=== PATIENT | male | born 1975 | race Caucasian/White ===

== ENCOUNTER 2020-06-25 23:46 | Inpatient (IN) | payer OTHER, MEDICAID ==
[~2020-06-25] VITALS: Ht 180.3 cm; Wt 77.1 kg
[2020-06-25 23:53] VITALS: BP 128/86
[2020-06-26] VITALS (7 sets, daily range): BP systolic 109–134; BP diastolic 62–95
[2020-06-26 00:52] LABS: ABSOLUTE NEUTROPHILS 5.3 thou/uL (1.4-8.2); BASOPHILS 0.5 % (0.0-2.0); EOSINOPHILS 0.1 % (0.0-3.0); HEMATOCRIT 42.6 % (42.0-52.0); HEMOGLOBIN 14.8 gm/dL (14.0-18.0); LYMPHOCYTES 25.6 % (24.0-44.0); MCH 32.3 pg (26.0-34.0); MCHC 34.7 g/dL (28.0-37.0); MONOCYTES 8.9 % (1.0-8.0); PLATELET COUNT 261 thou/uL (150-400); POLYS 64.9 % (36.0-66.0); RBC 4.58 mil/uL (4.50-6.00); RDW 12.8 % (10.5-14.5); WBC 8.2 thou/uL (4.0-11.0)
[2020-06-26 00:57] LABS: CREATININE 0.9 mg/dL (0.7-1.3); POTASSIUM 4.1 mmol/L (3.5-5.1)
[2020-06-26 01:04] LABS: ALBUMIN 3.3 g/dL (3.4-5.0); DIRECT BILIRUBIN 0.1 mg/dL (<0.1-0.2); TOTAL BILIRUBIN 0.4 mg/dL (0.2-1.0); TOTAL PROTEIN 6.8 g/dL (6.4-8.2)
[2020-06-26] MEDS ORDERED: INDERAL60 MG PO (02:48)
[2020-06-26] MEDS ORDERED: CARVEDILOL6.25 M1 PO (02:49)
[2020-06-26] MEDS ORDERED: ENTRESTO 49 MG1 EACH PO (02:49)
[2020-06-26] MEDS ORDERED: CHLORDIAZEPOXID25 M1 PO (04:50)
--- NOTE | 2020-06-26 06:26 | NUR ---
DISCUSSED DC HOME TODAY WITH PATIENT AFTER DR GARCIA HAD SPOKE TO HIM. VERY NERVOUS, VISIBLE TREMORS, NAUSEA WHEN HE LAYS IN CERTAIN POSITIONS. HAS TAKEN LIBRIUM IN THE PAST, PRESCRIPTION ON CHART FOR HOME USE. DR GARCIA GAVE ORDER FOR X 1 DOSE. I CALLED HIS FRIEND JUNITO WHO WAS UPDATED ON DC PLAN BY PHONE WITH HIS CONSENT.
--- NOTE | 2020-06-26 06:54 | NUR ---
SLEEPING BUT CONTINUES TO HAVE VISIBLE TREMORS. PULSE 105, V PACED RHYTHM. CHARGE NURSES EVAN AND COLE AWARE OF HIS TRANSPORTATION WILL BE DELAYED ARRIVING TO HOSPITAL AND CONTINUED TREMORS DURING HIS STAY.
[2020-06-26] MEDS ORDERED: TRAZODONE HCL100 MG PO (10:29)
[2020-06-26] MEDS ORDERED: DULOXETINE HCL30 MG PO (10:31)
[2020-06-26 13:19] LABS: FOLIC ACID > 100.0 ng/mL (8.6-58.9)
--- NOTE | 2020-06-26 18:18 | NUR ---
PT. ARRIVED AT THE FLOOR AROUND 1030; PT. AOX4; C/O HEADACHE; TREMORS NOTICED WHEN AMBULATING FROM STRETCHER TO BED; C/O NAUSEA, ANXIETY; SOME PIN AND NEEDLES; PRN IV MEDICATION GIVEN; IV FLUIDS STARTED; EDUCATED ABOUT FALL PRECAUTIONS; ST. UNDERSTANDING; CIWA PERFORMED THROUGH THE DAY; CHECK CHARTING; ABLE TO HAVE LUNCH; TOLERATED WELL; MONITORING; ASSESSMENT CHARGED; FOLLOWING POC; WILL PASS ON REPORT;
[2020-06-27 05:06] LABS: ABSOLUTE NEUTROPHILS 2.8 thou/uL (1.4-8.2); BASOPHILS 0.8 % (0.0-2.0); EOSINOPHILS 1.8 % (0.0-3.0); HEMATOCRIT 37.2 % (42.0-52.0); LYMPHOCYTES 33.8 % (24.0-44.0); MCH 31.5 pg (26.0-34.0); MCHC 33.5 g/dL (28.0-37.0); MCV 93.8 fL (80.0-100.0); MONOCYTES 7.3 % (1.0-8.0); POLYS 56.3 % (36.0-66.0); RBC 3.97 mil/uL (4.50-6.00); RDW 12.7 % (10.5-14.5)
[2020-06-27 05:21] LABS: HEMOGLOBIN 12.5 gm/dL (14.0-18.0); PLATELET COUNT 170 thou/uL (150-400)
[2020-06-27 05:36] LABS: CALCIUM 8.2 mg/dL (8.5-10.1); CREATININE 0.7 mg/dL (0.7-1.3); MAGNESIUM 1.8 mg/dL (1.8-2.4); POTASSIUM 3.7 mmol/L (3.5-5.1)
[2020-06-27 05:38] VITALS: BP 125/79
--- NOTE | 2020-06-27 07:24 | NUR ---
CIWA SCORE IN THE 8'S.ATIVAN PO GIVEN X 3 THIS SHIFT.ATE FEW BITES AT DINNER. MONITOR SHOWS AV PACED.POC CONTINUED.
[2020-06-27 08:00] VITALS: BP 118/73
--- NOTE | 2020-06-27 09:25 | EKG ---
[place] [id number] [employer] [place] [address] ELECTROCARDIOGRAM REPORT Name: GINO WOLFF Room #: 217- ADM IN M.R.#: [id number] Admission: 06/26/20 Attend Phys: Alberto Reyes MD Discharge: Date of : 71 Report #: [id number] [facility] ED Test Date: 2020-06-26 Test Time: 00:06:53 Pat Name: GINO WOLFF Department: Room: 217 Gender: M Records Specialist: remberto crespo : 1975 Requested By: Mily Gipson Order Number: [id number] MD: Mitch Mendes Measurements Intervals Bard Rate: 120 P: 0 TN: 106 QRS: 86 QRSD: 138 T: 210 QT: 347 QTc: 491 Interpretive Statements Ventricular-paced rhythm No further analysis attempted due to paced rhythm Baseline wander in lead(s) V2 No previous ECG available for comparison Electronically Signed On 06-27-2020 9:25:07 CDT by Mitch Mendes [email or web address] <ELECTRONICALLY SIGNED> By: Mitch Mendes MD, [facility] 06/27/20924 Mitch Mendes MD, [facility] /EPI
[2020-06-27 12:45] VITALS: BP 134/83
[2020-06-27 16:00] VITALS: BP 134/83
[2020-06-27 19:45] VITALS: BP 150/85
--- NOTE | 2020-06-27 20:31 | NUR ---
RECEIVED PT'S CARE AROUND 714; PT. ON BED; RESTING WITH EYES CLOSED; SR ON THE MONITOR; EQUAL CHEST RISING NOTICED; DURING AM ASSESMENT PT. AOX4; AM MEDICATION GIVEN WITH PRN LORAZEPAM; CIWA ASSESSED; CHECK CHARTING; NOTICED WHEEZING AND COARSE DURING ASSESSMENT; PHYSICIAN NOTIFIED; PT. REQUESTED CHF MEDICATION; DR. VARGAS NOTIFIED; OK FOR PT. TO [place] MEDICATION FROM HOME; HOME MEDICATION BROUGHT BY FRIEND DURING THE AFTERNOON; PER DR. VARGAS RESUME MEDICATION PER RX; MEDICATION SENT TO PHARMACY TO ADD TO EMAR; UPDATED GIVEN TO FRIEND DURING THE AFTERNOON; ST. UNDERSTANDING; D/C FLUIDS; ASSESSMENT CHARGED; FOLLOWING POC; PASSED ON REPORT;
[2020-06-28 03:24] VITALS: BP 128/80
--- NOTE | 2020-06-28 07:49 | NUR ---
SLEPT MOST OF SHIFT. REMAINS WITH TREMORS, MILD HEADACHE AND SOME NAUSEA. ATIVAN GIVEN PER SCORE REQUIREMENTS. ASSIST UP PRN. WORKING ON GOALS AND PLAN OF CARE FOR NOC. PROGRESSING SLOWLY. CONTINUE TO ASSES CLOSELY.
[2020-06-28 08:13] VITALS: BP 133/84
--- NOTE | 2020-06-28 10:20 | NUR ---
SPOKE TO JUNITO AT 1023 SHE STATED THAT THE PT'S CAR IS FINE, SHE HAS TAKEN CARE OF EVERYTHING. SHE STATED THAT SHE NEEDS HIM HERE ONE MORE DAY SO SHE CAN CLEAN OUT IS HOUSE OF ALL ALCOHOL AND DRIVE HIM STRAIGHT FROM HERE TO REHAB. SHE SAID HE IS VERY MANIPULATIVE AND WILL HIDE HOW BAD HE IS DOING JUST SO HE CAN GO HOME. SHE STATED HIS MOTIVATION RIGHT NOW IS TO GET OUT AND GET A DRINK. SHE WILL BE HERE IN A FEW HOURS AND WOULD LIKE TO TALK TO DR. HRENÁNDEZ.
[2020-06-28] MEDS ORDERED: PEPCID20 MG PO (11:50)
[2020-06-28 12:20] VITALS: BP 133/84
--- NOTE | 2020-06-28 12:35 | NUR ---
ASSUMED CARE OF PATIENT AT 0700. SPOKE TO PT'S GIRLFRIEND AT [address] HERNÁNDEZ AT BEDSIDE AT 1045 AND STATED HE IS READY TO GO HOME. SPOKE TO GIRLFRIEND AGAIN AT 1145 AND SHE STATED SHE IS POWER OF TALENT ASSISTANT AND WE CAN'T JUST LET HIM GO IN A CAB. I TURNED IT OVER TO CASE MANAGEMENT AT THAT POINT. PT LEFT UNIT WITH GIRLFRIEND AT 1225 WITH ALL BELONGINGS
--- NOTE | 2020-06-28 17:39 | NUR ---
Met with patient who is to [place] today. patient reports needs a cab ride. Arranged cab voucher for ride home. Discussed with ETOH treatment and patient reports has been at [address] and [place]. he attends AA. he is not interested in resources as he reports he knows the community resources. He does not want referral for treatment or to rec treatment at [facility]. he plans to discharge home, shower, check on father and then decide treatment in future. Patient later reports girlfriend to transport home. No further needs.
== END 2020-06-28 12:00 | disposition home or self-care (01) | DRG 897 ==
LOC: ER 23:46 → EROBS 06-26 09:42 → 2N 06-26 09:42
PROVIDERS: Emergency Medicine; Nurse Practitioner; ADMIT Internal Medicine; ATTEND Internal Medicine
DX: F10.239 Alcohol dependence with withdrawal, unspecified (principal); I42.9 Cardiomyopathy, unspecified; J44.1 Chronic obstructive pulmonary disease with (acute) exacerbation; F10.229 Alcohol dependence with intoxication, unspecified; F17.210 Nicotine dependence, cigarettes, uncomplicated; I50.9 Heart failure, unspecified; Z79.899 Other long term (current) drug therapy; Z95.0 Presence of cardiac pacemaker; Z91.041 Radiographic dye allergy status
CPT/HCPCS: 10081